=== PATIENT | male | born 1965 | race Caucasian/White ===

== ENCOUNTER 2023-07-04 06:29 | Day surgery (SDC) | payer SELFPAY ==
[2023-07-04] MEDS ORDERED: fentaNYL 100 MCG/2 ML SDV IV ONE (06:30)
[2023-07-04] MEDS ORDERED: Midazolam 1 MG/ML 2 ML SDV IV ONE (06:30)
[2023-07-04] MEDS: Dextrose 5%-0.45% NaCl 1,000 ML IV SCH (06:50)
[2023-07-04] MEDS ORDERED: fentaNYL 100 MCG/2 ML SDV ONE (06:51)
[2023-07-04] MEDS ORDERED: Midazolam 1 MG/ML 2 ML SDV ONE (06:51)
[2023-07-04] MEDS: fentaNYL 100 MCG/2 ML SDV IV ONE ×2 (07:20→07:21)
[2023-07-04] MEDS: Midazolam 1 MG/ML 2 ML SDV IV ONE ×6 (07:21→07:30)
== END 2023-07-04 09:05 | disposition home or self-care (01) ==
LOC: DL.ENDO 06:29
PROVIDERS: ATTEND Internal Medicine Gastroenterology
DX: Z12.11 Encounter for screening for malignant neoplasm of colon (principal); K64.8 Other hemorrhoids; I10 Essential (primary) hypertension; G47.33 Obstructive sleep apnea (adult) (pediatric); E78.5 Hyperlipidemia, unspecified; E66.09 Other obesity due to excess calories; Z68.31 Body mass index [BMI] 31.0-31.9, adult
CPT/HCPCS: 45378; J2250; J3010; J7042